=== PATIENT | female | born 1985 | race Caucasian/White ===

== ENCOUNTER 2022-05-24 18:19 | Emergency (ER) | payer OTHER ==
[~2022-05-24] VITALS: Ht 162.6 cm; Wt 66.7 kg
[2022-05-24 18:55] VITALS: BP_SYST 124
[2022-05-24 22:34] VITALS: BP_SYST 128
== END 2022-05-24 22:34 | disposition home or self-care (01) ==
LOC: SED 18:19
DX: O23.41 Unspecified infection of urinary tract in pregnancy, first trimester (principal); Z3A.14 14 weeks gestation of pregnancy; Z79.899 Other long term (current) drug therapy
CPT/HCPCS: 99284